=== PATIENT | female | born 1970 | race American Indian/Alaskan Native ===

== ENCOUNTER 2018-12-06 12:54 | Outpatient (CLI) | payer BC | END 2018-12-06 12:55 | disposition home or self-care (01) | LOC: C.MAMMO 12:54 | DX: Z12.31 Encounter for screening mammogram for malignant neoplasm of breast (principal) ==

== ENCOUNTER 2019-01-07 08:41 | Outpatient (CLI) | payer BC | END 2019-01-07 08:42 | disposition home or self-care (01) | LOC: C.USIC 08:41 ==